=== PATIENT | male | born 1970 | race Caucasian/White ===

== ENCOUNTER 2018-03-29 10:49 | Emergency (ER) | payer OTHER ==
[2018-03-29 11:30] LABS: ADD MAN DIFF? NO
[2018-03-29] MEDS: morphine 4 MG/ML VIAL IV (11:35)
[2018-03-29] MEDS: ONDANSETRON 4 MG INJ IV (11:35)
[2018-03-29 11:36] LABS: WHITE BLOOD COUNT 6.5 10^3/ul (4.8-10.8)
[2018-03-29 11:36] LABS: BASOPHIL # 0.1 10^3/ul (0.0-0.1); BASOPHILS % 1.1 % (0.0-2.0); EOSINOPHILS # 0.2 10^3/ul (0.0-0.5); EOSINOPHILS % 2.3 % (0.0-7.0); HEMOGLOBIN 16.1 g/dl (14.0-18.0); LYMPHOCYTES # 1.6 10^3/ul (0.8-2.9); LYMPHOCYTES % 24.3 % (15.0-51.0); MEAN CORPUSCULAR HEMOGLOBIN 31.3 pg (29.0-33.0); MEAN CORPUSCULAR HGB CONC 34.3 g/dl (32.0-37.0); MEAN CORPUSCULAR VOLUME 91.4 fl (82.0-101.0); MEAN PLATELET VOLUME 11.4 fl (7.4-10.4); MONOCYTE # 0.7 10^3/ul (0.3-0.9); NEUTROPHILS % 62.1 % (39.0-77.0); PLATELET COUNT 206 10^3/UL (140-415); RED BLOOD COUNT 5.14 10^6/ul (4.70-6.10); RED CELL DISTRIBUTION WIDTH 12.8 % (11.5-14.5)
[2018-03-29 11:46] LABS: ADD UMIC YES; UR ASCORBIC ACID NEGATIVE (NEGATIVE); UR BACTERIA FEW /HPF (NONE SEEN); UR BILIRUBIN (Dip) NEGATIVE (NEGATIVE); UR BLOOD (Dip) NEGATIVE (NEGATIVE); UR CLARITY SLIGHTLY CLOUDY (CLEAR); UR COLOR YELLOW (YELLOW); UR GLUCOSE (Dip) NEGATIVE (NEGATIVE); UR KETONES (Dip) NEGATIVE (NEGATIVE); UR LEUKOCYTE ESTERASE (Dip) TRACE Leu/ul (NEGATIVE); UR MUCUS MANY /HPF (NONE SEEN); UR NITRITE (Dip) NEGATIVE (NEGATIVE); UR RBC 1 /HPF (0-5); UR SPECIFIC GRAVITY (Dip) 1.025 (1.003-1.030); UR TOTAL PROTEIN (Dip) NEGATIVE (NEGATIVE); UR UROBILINOGEN (Dip) NEGATIVE (NEGATIVE); UR WBC 1 /HPF (0-5)
[2018-03-29 11:54] LABS: ALANINE AMINOTRANSFERASE 31 IU/L (13-69); ALBUMIN/GLOBULIN RATIO 1.33; ALKALINE PHOSPHATASE 54 IU/L (42-121); ANION GAP 14 (8-16); ASPARTATE AMINO TRANSFERASE 22 IU/L (15-46); BILIRUBIN,INDIRECT 0.6 mg/dl (0-1.1); BILIRUBIN,TOTAL 0.6 mg/dl (0.2-1.3); BLOOD UREA NITROGEN 12 mg/dl (7-20); CALCIUM 9.3 mg/dl (8.4-10.2); CARBON DIOXIDE 30 mmol/L (21-31); CHLORIDE 107 mmol/L (97-110); CREATININE 0.93 mg/dl (0.61-1.24); GLUCOSE 102 mg/dl (70-220); LIPASE 213 U/L (23-300); POTASSIUM 4.7 mmol/L (3.5-5.1); SODIUM 146 mmol/L (135-144)
[2018-03-29 12:10] LABS: TROPONIN-I < 0.012 ng/ml (0.00-0.12)
[2018-03-29] MEDS ORDERED: SOD CHLORIDE 0.9% 100 ML (12:15)
[2018-03-29] MEDS ORDERED: IOHEXOL 300MG/ML 150 ML BTL (12:15)
== END 2018-03-29 12:53 | disposition home or self-care (01) ==
LOC: E/R 10:49
DX: R10.31 Right lower quadrant pain (principal); F17.210 Nicotine dependence, cigarettes, uncomplicated; R40.2142 Coma scale, eyes open, spontaneous, at arrival to emergency department; R40.2362 Coma scale, best motor response, obeys commands, at arrival to emergency department; R40.2252 Coma scale, best verbal response, oriented, at arrival to emergency department
CPT/HCPCS: 36415; 74176; 76705; 80053; 81001; 83690; 84484; 85025; 93005; 96374; 96375; 99285-25

== ENCOUNTER 2018-06-22 09:28 | Emergency (ER) | payer OTHER ==
[2018-06-22] MEDS: ONDANSETRON 4 MG INJ IV (10:07)
[2018-06-22] MEDS: FAMOTIDINE 20 MG INJ IV (10:07)
[2018-06-22] MEDS: morphine 4 MG/ML VIAL IV (10:07)
[2018-06-22 10:16] LABS: ADD MAN DIFF? NO
[2018-06-22 10:19] LABS: BASOPHILS % 0.5 % (0.0-2.0); EOSINOPHILS # 0.1 10^3/ul (0.0-0.5); EOSINOPHILS % 1.8 % (0.0-7.0); HEMATOCRIT 46.9 % (42.0-52.0); HEMOGLOBIN 16.2 g/dl (14.0-18.0); LYMPHOCYTES # 1.4 10^3/ul (0.8-2.9); LYMPHOCYTES % 21.9 % (15.0-51.0); MEAN CORPUSCULAR HEMOGLOBIN 31.3 pg (29.0-33.0); MEAN CORPUSCULAR HGB CONC 34.5 g/dl (32.0-37.0); MEAN CORPUSCULAR VOLUME 90.5 fl (82.0-101.0); MEAN PLATELET VOLUME 11.3 fl (7.4-10.4); MONOCYTE # 0.6 10^3/ul (0.3-0.9); MONOCYTES % 9.6 % (0.0-11.0); NEUTROPHIL # 4.4 10^3/ul (1.6-7.5); PLATELET COUNT 201 10^3/UL (140-415); RED BLOOD COUNT 5.18 10^6/ul (4.70-6.10); RED CELL DISTRIBUTION WIDTH 12.9 % (11.5-14.5)
[2018-06-22 10:19] LABS: WHITE BLOOD COUNT 6.6 10^3/ul (4.8-10.8)
[2018-06-22 10:40] LABS: ALANINE AMINOTRANSFERASE 43 IU/L (13-69); ALBUMIN 4.2 g/dl (3.3-4.9); ALBUMIN/GLOBULIN RATIO 1.75; ALKALINE PHOSPHATASE 48 IU/L (42-121); ANION GAP 11 (8-16); ASPARTATE AMINO TRANSFERASE 32 IU/L (15-46); BILIRUBIN,INDIRECT 1.1 mg/dl (0-1.1); BILIRUBIN,TOTAL 1.1 mg/dl (0.2-1.3); BLOOD UREA NITROGEN 10 mg/dl (7-20); CALCIUM 9.2 mg/dl (8.4-10.2); CARBON DIOXIDE 27 mmol/L (21-31); CHLORIDE 108 mmol/L (97-110); CREATININE 0.79 mg/dl (0.61-1.24); GLUCOSE 108 mg/dl (70-220); LIPASE 157 U/L (23-300); POTASSIUM 4.7 mmol/L (3.5-5.1); SODIUM 141 mmol/L (135-144); TOTAL PROTEIN 6.6 g/dl (6.1-8.1)
[2018-06-22] MEDS: LIDOCAINE/MYLANTA 40 ML BTL PO (11:46)
[2018-06-22 11:52] LABS: TROPONIN-I < 0.010 ng/ml (0.000-0.120)
[2018-06-22 12:01] LABS: UR BACTERIA FEW /HPF (NONE SEEN); UR MUCUS MANY /HPF (NONE SEEN); UR RBC 1 /HPF (0-5); UR SQUAMOUS EPITHELIAL CELL FEW /HPF (FEW); UR WBC 18 /HPF (0-5)
[2018-06-22 12:11] LABS: ADD UMIC YES; UR ASCORBIC ACID NEGATIVE (NEGATIVE); UR BILIRUBIN (Dip) NEGATIVE (NEGATIVE); UR BLOOD (Dip) NEGATIVE (NEGATIVE); UR CLARITY SLIGHTLY CLOUDY (CLEAR); UR COLOR YELLOW (YELLOW); UR GLUCOSE (Dip) NEGATIVE (NEGATIVE); UR KETONES (Dip) NEGATIVE (NEGATIVE); UR LEUKOCYTE ESTERASE (Dip) 1+ Leu/ul (NEGATIVE); UR NITRITE (Dip) NEGATIVE (NEGATIVE); UR SPECIFIC GRAVITY (Dip) 1.017 (1.003-1.030); UR TOTAL PROTEIN (Dip) NEGATIVE (NEGATIVE); UR UROBILINOGEN (Dip) NEGATIVE (NEGATIVE)
[2018-06-22] MEDS: KETOROLAC 30 MG INJ IV (13:41)
[2018-06-22] MEDS: CEFTRIAXONE 1 GM/50 ML (PMX) 50 ML IVPB (14:10)
[2018-06-22] MEDS: CEPHALEXIN 500 MG CAP PO (15:05)
== END 2018-06-22 15:17 | disposition home or self-care (01) ==
LOC: FTE 09:28
DX: N20.0 Calculus of kidney (principal); N39.0 Urinary tract infection, site not specified; F17.210 Nicotine dependence, cigarettes, uncomplicated; R10.9 Unspecified abdominal pain
CPT/HCPCS: 36415; 74176; 76705; 80053; 81001; 83690; 84484; 85025; 87086; 93005; 96365; 96375; 99285-25

== ENCOUNTER 2018-08-29 09:15 | Emergency (ER) | payer OTHER ==
[2018-08-29 09:45] LABS: ADD UMIC NO; UR ASCORBIC ACID NEGATIVE (NEGATIVE); UR BILIRUBIN (Dip) NEGATIVE (NEGATIVE); UR BLOOD (Dip) NEGATIVE (NEGATIVE); UR CLARITY CLEAR (CLEAR); UR COLOR STRAW (YELLOW); UR GLUCOSE (Dip) NEGATIVE (NEGATIVE); UR KETONES (Dip) NEGATIVE (NEGATIVE); UR LEUKOCYTE ESTERASE (Dip) NEGATIVE Leu/ul (NEGATIVE); UR NITRITE (Dip) NEGATIVE (NEGATIVE); UR TOTAL PROTEIN (Dip) NEGATIVE (NEGATIVE); UR UROBILINOGEN (Dip) NEGATIVE (NEGATIVE)
== END 2018-08-29 10:16 | disposition home or self-care (01) ==
LOC: E/R 09:15
DX: R10.9 Unspecified abdominal pain (principal); F17.210 Nicotine dependence, cigarettes, uncomplicated
CPT/HCPCS: 71045; 81003; 99284-25

== ENCOUNTER 2019-02-21 09:28 | Emergency (ER) | payer OTHER ==
[2019-02-21] MEDS: FLUORESCEIN STRIP LEFT EYE (10:21)
[2019-02-21] MEDS: IBUPROFEN 600 MG TAB PO (10:40)
== END 2019-02-21 10:42 | disposition home or self-care (01) ==
LOC: FTE 09:28
DX: S05.02XA Injury of conjunctiva and corneal abrasion without foreign body, left eye, initial encounter (principal); X58.XXXA Exposure to other specified factors, initial encounter; Y92.9 Unspecified place or not applicable
CPT/HCPCS: 99283; Z7610

== ENCOUNTER 2019-02-24 13:09 | Emergency (ER) | payer OTHER ==
[2019-02-24 15:55] LABS: ADD MAN DIFF? NO
[2019-02-24] MEDS: HYDROmorphONE 1 MG/ML SYG IV (15:56)
[2019-02-24] MEDS: ONDANSETRON 4 MG INJ IV (15:56)
[2019-02-24 15:57] LABS: WHITE BLOOD COUNT 9.3 10^3/ul (4.8-10.8)
[2019-02-24 15:57] LABS: BASOPHIL # 0.1 10^3/ul (0.0-0.1); BASOPHILS % 0.6 % (0.0-2.0); EOSINOPHILS % 0.4 % (0.0-7.0); HEMATOCRIT 48.5 % (42.0-52.0); LYMPHOCYTES % 10.8 % (15.0-51.0); MEAN CORPUSCULAR HEMOGLOBIN 31.3 pg (29.0-33.0); MEAN CORPUSCULAR HGB CONC 35.1 g/dl (32.0-37.0); MEAN CORPUSCULAR VOLUME 89.3 fl (82.0-101.0); MEAN PLATELET VOLUME 11.1 fl (7.4-10.4); MONOCYTE # 1.2 10^3/ul (0.3-0.9); MONOCYTES % 12.5 % (0.0-11.0); NEUTROPHILS % 75.5 % (39.0-77.0); PLATELET COUNT 173 10^3/UL (140-415); RED BLOOD COUNT 5.43 10^6/ul (4.70-6.10); RED CELL DISTRIBUTION WIDTH 12.7 % (11.5-14.5)
[2019-02-24 16:11] LABS: ADD UMIC NO; UR ASCORBIC ACID NEGATIVE (NEGATIVE); UR BILIRUBIN (Dip) NEGATIVE (NEGATIVE); UR BLOOD (Dip) NEGATIVE (NEGATIVE); UR CLARITY SLIGHTLY CLOUDY (CLEAR); UR COLOR YELLOW (YELLOW); UR GLUCOSE (Dip) NEGATIVE (NEGATIVE); UR KETONES (Dip) NEGATIVE (NEGATIVE); UR LEUKOCYTE ESTERASE (Dip) NEGATIVE Leu/ul (NEGATIVE); UR MUCUS FEW /HPF (NONE SEEN); UR NITRITE (Dip) NEGATIVE (NEGATIVE); UR RBC 0 /HPF (0-5); UR SPECIFIC GRAVITY (Dip) 1.019 (1.003-1.030); UR SQUAMOUS EPITHELIAL CELL FEW /HPF (FEW); UR TOTAL PROTEIN (Dip) NEGATIVE (NEGATIVE); UR UROBILINOGEN (Dip) 1+ mg/dL (NEGATIVE); UR WBC 3 /HPF (0-5)
[2019-02-24 16:15] LABS: ALANINE AMINOTRANSFERASE 21 IU/L (13-69); ALKALINE PHOSPHATASE 47 IU/L (42-121); ANION GAP 7 (5-13); ASPARTATE AMINO TRANSFERASE 19 IU/L (15-46); BILIRUBIN,INDIRECT 0.7 mg/dl (0-1.1); BILIRUBIN,TOTAL 0.7 mg/dl (0.2-1.3); BLOOD UREA NITROGEN 9 mg/dl (7-20); CALCIUM 8.7 mg/dl (8.4-10.2); CARBON DIOXIDE 26 mmol/L (21-31); CHLORIDE 107 mmol/L (97-110); CREATININE 0.84 mg/dl (0.61-1.24); Estimated GFR > 60 mL/min (>60); GLUCOSE 99 mg/dl (70-220); POTASSIUM 4.2 mmol/L (3.5-5.1); SODIUM 140 mmol/L (135-144)
[2019-02-24 16:16] LABS: ALBUMIN 3.7 g/dl (3.3-4.9)
[2019-02-24] MEDS: SOD CHLORIDE 0.9% 100 ML (17:42)
[2019-02-24] MEDS: IOHEXOL 300MG/ML 150 ML BTL (17:42)
== END 2019-02-24 19:00 | disposition home or self-care (01) ==
LOC: E/R 13:09
DX: K57.32 Diverticulitis of large intestine without perforation or abscess without bleeding (principal); Z87.891 Personal history of nicotine dependence
CPT/HCPCS: 36415; 74177; 80053; 81001; 81003; 85025; 96374; 96375; 99285-25

== ENCOUNTER 2019-04-19 11:45 | Emergency (ER) | payer OTHER ==
[2019-04-19] MEDS: KETOROLAC 60 MG INJ IM (13:43)
== END 2019-04-19 15:29 | disposition home or self-care (01) ==
LOC: FTE 11:45
DX: S43.101A Unspecified dislocation of right acromioclavicular joint, initial encounter (principal); F17.210 Nicotine dependence, cigarettes, uncomplicated; X58.XXXA Exposure to other specified factors, initial encounter; Y92.9 Unspecified place or not applicable
CPT/HCPCS: 73030; 73030-RT; 96372; 99284-25